=== PATIENT | female | born 1985 | race Caucasian/White ===

== ENCOUNTER 2016-11-22 08:16 | Emergency (ER) | payer BC ==
--- NOTE | 2016-12-16 21:30 | ER ---
ADMIT: 11/22/2016 RM/LOC: ER [facility] MR#: [id number] [address] [id number] LUKE DIAZ [facility] [address] [address] Emergency Room Report SEX: F AGE: 31 : 1985 DATE: 11/22/2016 A 31-year-old who is 5 to 8 weeks' , saw Dr. Quinones earlier in the week, had an ultrasound, was told that was normal IUP, comes to the Emergency Department with some cramping which she said has been there for several days and some spotting when she wiped after urinating. See T-sheet for history and physical. The patient diagnosed with and spotting. At the time of this dictation, UA is negative. Quant hCG is being drawn. They are to follow up on Thursday with Dr. Quinones. Latrell Noland MD/ ascencion JOB #: [id number] CC: Latrell Noland MD, Attending Physician Enrique Quinones MD, Family Physician
== END 2016-11-22 09:25 | disposition home or self-care (01) ==
LOC: ER 08:16
DX: O20.9 Hemorrhage in early pregnancy, unspecified (principal); Z3A.01 Less than 8 weeks gestation of pregnancy

== ENCOUNTER 2016-11-23 13:08 | Emergency (ER) | payer BC ==
--- NOTE | 2016-12-16 21:31 | ER ---
ADMIT: 11/23/2016 RM/LOC: ER [facility] MR#: [id number] [facility] [address] [place], [place] [address] [facility] [address] [address] Emergency Room Report SEX: F AGE: 31 : 1985 DATE: 11/23/2016 ADDENDUM: This patient comes into the ER because she has had vaginal bleeding since yesterday. It has been light spotting. Yesterday it was brown spots, today it is red spots. She does not have any pain. She is currently , had an ultrasound done by her primary which showed a 5-week IUP. She was seen in the ER yesterday in our ER physician did a beta quant which was 2500 and told her she needed to be seen on Thursday. She is concerned since she has brighter red spotting today that maybe there was something she needs to be doing. PHYSICAL EXAM: GENERAL: She is alert and oriented. VITAL SIGNS: Normal. ABDOMEN: Soft, nontender to palpation. I reviewed the chart that was done yesterday and we talked about beta quant and having to have it repeated tomorrow and what it meant to be elevated or if it was decreased. She should give Dr. Quinones a call if she is having more pain. Please see my T sheet. NOBLE Knight / Latrell Noland MD / nessl JOB #: [id number] CC: Latrell Noland MD, Attending Physician Enrique Quinones MD, Family Physician
== END 2016-11-23 13:41 | disposition home or self-care (01) ==
LOC: ER 13:08
DX: O20.9 Hemorrhage in early pregnancy, unspecified (principal); Z3A.01 Less than 8 weeks gestation of pregnancy; Z79.899 Other long term (current) drug therapy